=== PATIENT | male | born 1935 | race Caucasian/White ===

== ENCOUNTER 2018-08-28 08:00 | Day surgery (SDC) | payer MEDICARE ==
[2018-08-28] VITALS (7 sets, daily range): BP systolic 108–138; BP diastolic 56–104
[~2018-08-28] VITALS: Ht 182.9 cm; Wt 94.6 kg
[2018-08-28] MEDS ORDERED: SPIR25TA5 PO (08:36)
[2018-08-28] MEDS ORDERED: COU5T PO (08:37)
[2018-08-28] MEDS ORDERED: CARV-50 PO (08:37)
[2018-08-28] MEDS ORDERED: SIMV20TA5 PO (08:39)
[2018-08-28] MEDS ORDERED: LEVO25TA2 PO (08:42)
[2018-08-28] MEDS ORDERED: FINA5TAB11 PO (08:43)
[2018-08-28] MEDS ORDERED: FLO0.4C PO (08:44)
[2018-08-28] MEDS ORDERED: LOSA25TA96 PO (08:44)
[2018-08-28] MEDS ORDERED: COLC0.6T69 PO (08:47)
[2018-08-28] MEDS ORDERED: sod bicarbonate 150mEq in D5W 1,150 ML IV ONE (08:55)
[2018-08-28] MEDS ORDERED: diphenhydrAMINE 25mg capsule PO PRN (08:55)
[2018-08-28 09:03] LABS: BASOPHILS # (AUTO) 0.1 X10'3 (0-0.2); BASOPHILS % (AUTO) 0.9 % (0-1); EOSINOPHILS # (AUTO) 0.3 X10'3 (0-0.9); EOSINOPHILS % (AUTO) 4.3 % (0-6); LYMPHOCYTES # (AUTO) 1.1 X10'3 (1.1-4.8); LYMPHOCYTES % (AUTO) 15.5 % (21-51); MEAN CORPUSCULAR HEMOGLOBIN 32.6 PG (27.0-31.0); MEAN CORPUSCULAR HGB CONC 33.1 % (33.0-36.5); MEAN CORPUSCULAR VOLUME 98.5 FL (78-98); MEAN PLATELET VOLUME 8.2 FL (7.4-10.4); MONOCYTES # (AUTO) 0.6 X10'3 (0-0.9); NEUTROPHILS # (AUTO) 5.2 X10'3 (1.8-7.7); NEUTROPHILS % (AUTO) 71.3 % (42-75); PRE OP HEMATOCRIT 46.4 % (42.0-52.0); PRE OP HEMOGLOBIN 15.4 g/dL (14.0-17.9); PRE OP PLATELET COUNT 145 X10'3 (140-440); RED BLOOD COUNT 4.71 X10'6 (4.70-6.10); RED CELL DISTRIBUTION WIDTH 15.1 % (11.5-14.5)
[2018-08-28] MEDS ORDERED: fentaNYL/PF 50MCG/1 ML 2ML syringe ONE ×3 (09:07→10:54)
[2018-08-28] MEDS ORDERED: midazolam 2 mg/2 ml injection ONE ×3 (09:07→10:26)
[2018-08-28] MEDS ORDERED: vancomycin 1,000mg inj ONE (09:08)
[2018-08-28] MEDS ORDERED: iohexol 350 MG/ML 50ML vial IV ONE ×2 (09:08→10:26)
[2018-08-28] MEDS ORDERED: cefazolin/dext.iso 2gm/50ml 50 ML IV ONE (09:08)
[2018-08-28] MEDS ORDERED: LIDOcaine 1.5% w/epinephrine 1:200,000 5ml ampul ONE (09:08)
[2018-08-28 09:12] LABS: ALBUMIN 3.7 G/DL (3.4-5.0); ANION GAP 10 (8-16); BLOOD UREA NITROGEN 27 MG/DL (7-18); BUN/CREATININE RATIO 18.4 (5.4-32.0); CALCIUM 8.5 MG/DL (8.5-10.1); CHLORIDE 107 MMOL/L (99-107); CREATININE 1.47 MG/DL (0.60-1.10); GLUCOSE 106 MG/DL (70-104); MAGNESIUM 1.8 MG/DL (1.5-2.4); POTASSIUM 4.3 MMOL/L (3.5-5.1); SODIUM 140 MMOL/L (135-145); eGFR 46 ML/MIN
[2018-08-28 09:21] LABS: INR 1.2 INR; PROTHROMBIN TIME 12.3 SECONDS (9.0-12.0)
[2018-08-28] MEDS ORDERED: proCHLORperazine 10 MG/2 ml inj ONE (10:22)
== END 2018-08-28 13:50 | disposition home or self-care (01) ==
LOC: SSTAY O 08:00
PROVIDERS: ATTEND Internal Medicine Cardiovascular Disease
DX: Z45.02 Encounter for adjustment and management of automatic implantable cardiac defibrillator (principal); I44.7 Left bundle-branch block, unspecified; I42.0 Dilated cardiomyopathy; I12.9 Hypertensive chronic kidney disease with stage 1 through stage 4 chronic kidney disease, or unspecified chronic kidney disease; N18.9 Chronic kidney disease, unspecified; M19.90 Unspecified osteoarthritis, unspecified site; Z86.74 Personal history of sudden cardiac arrest; Z95.5 Presence of coronary angioplasty implant and graft; Z95.1 Presence of aortocoronary bypass graft; Z87.891 Personal history of nicotine dependence; Z90.5 Acquired absence of kidney; Z72.89 Other problems related to lifestyle; Z85.528 Personal history of other malignant neoplasm of kidney; Z79.01 Long term (current) use of anticoagulants; Z79.899 Other long term (current) drug therapy; Z88.8 Allergy status to other drugs, medicaments and biological substances; Z98.890 Other specified postprocedural states
CPT/HCPCS: 33225; 33264; 36415; 71046; 80048; 83735; 85025; 85610; 93005; 99152; 99153; C1882; C1887; C1900; J0690; J0780; J2250; J3010; J3370; Q9967; 33216; 33231; A4565; A4620; C1769; C1894; J3490

== ENCOUNTER 2022-05-28 07:54 | Day surgery (SDC) | payer MEDICARE ==
[2022-05-28] VITALS (10 sets, daily range): BP systolic 117–137; BP diastolic 60–81
[~2022-05-28] VITALS: Ht 180.3 cm; Wt 87.9 kg
[~2022-05-28 07:54] MED LIST: CARV-50 PO; COLC0.6T72 PO; FINA5TAB11 PO; FLO0.4C PO; LEVO25TA2 PO; LOSA25TA96 PO; SIMV-42 PO; SPIR25TA5 PO; WARF-113 PO
[2022-05-28] MEDS ORDERED: normal saline 1,000 ML IV SCH (08:15)
[2022-05-28] MEDS ORDERED: diphenhydrAMINE 25mg capsule PO PRN (08:15)
[2022-05-28] MEDS ORDERED: NITR0.4T51 SL (08:24)
[2022-05-28] MEDS ORDERED: ASPI81TA52 PO (08:24)
[2022-05-28] MEDS ORDERED: TRAM50TA2 PO (08:38)
[2022-05-28] MEDS ORDERED: FLUT1BLS16 (08:38)
[2022-05-28] MEDS ORDERED: AMIO200T61 PO (08:38)
[2022-05-28] MEDS ORDERED: TYLENOL PO (08:38)
[2022-05-28] MEDS ORDERED: ISOS30TA84 PO (08:38)
[2022-05-28 09:10] LABS: BASOPHILS # (AUTO) 0.1 X10'3 (0-0.2); BASOPHILS % (AUTO) 1.2 % (0-1); EOSINOPHILS # (AUTO) 0.1 X10'3 (0-0.9); EOSINOPHILS % (AUTO) 2.5 % (0-6); HEMATOCRIT 39.7 % (42.0-52.0); HEMOGLOBIN 12.7 g/dl (14.0-17.9); LYMPHOCYTES # (AUTO) 0.7 X10'3 (1.1-4.8); LYMPHOCYTES % (AUTO) 12.4 % (21-51); MEAN CORPUSCULAR HEMOGLOBIN 26.7 PG (27.0-31.0); MEAN CORPUSCULAR VOLUME 83.4 FL (78-98); MEAN PLATELET VOLUME 8.1 FL (7.4-10.4); MONOCYTES # (AUTO) 0.5 X10'3 (0-0.9); MONOCYTES % (AUTO) 8.5 % (2-12); NEUTROPHILS # (AUTO) 4.5 X10'3 (1.8-7.7); NEUTROPHILS % (AUTO) 75.4 % (42-75); PLATELET COUNT 151 X10'3 (140-440); RED BLOOD COUNT 4.75 X10'6 (4.70-6.10); RED CELL DISTRIBUTION WIDTH 18.9 % (11.5-14.5); WHITE BLOOD COUNT 5.9 X10'3 (4.5-11.0)
[2022-05-28 09:26] LABS: ALBUMIN 3.9 G/DL (3.4-5.0); ANION GAP 12 (8-16); BLOOD UREA NITROGEN 33 MG/DL (7-18); BUN/CREATININE RATIO 16.6 (5.4-32.0); CALCIUM 8.6 MG/DL (8.5-10.1); CHLORIDE 108 MMOL/L (99-107); CREATININE 1.99 MG/DL (0.60-1.10); GLUCOSE 93 MG/DL (70-104); MAGNESIUM 1.8 MG/DL (1.5-2.4); POTASSIUM 4.4 MMOL/L (3.5-5.1); SODIUM 141 MMOL/L (135-145); TOTAL CARBON DIOXIDE 21.1 MMOL/L (24-32); eGFR 32 ML/MIN
[2022-05-28 09:41] LABS: LARGE PLATELETS FEW; PLATELET ESTIMATE NORMAL
[2022-05-28 09:42] LABS: ELLIPTOCYTES FEW; POIKILOCYTOSIS FEW; POLYCHROMASIA FEW
[2022-05-28] MEDS ORDERED: midazolam 1 mg/ML 2ml injection ONE ×2 (11:09→12:14)
[2022-05-28] MEDS ORDERED: LIDOcaine 1% 30ml preserv. free vial ONE (11:09)
[2022-05-28] MEDS ORDERED: fentaNYL/PF 50MCG/1 ML 2ML syringe ONE ×2 (11:09→12:14)
[2022-05-28] MEDS ORDERED: heparin 1,000unit/ml 10ml vial 10 ML ONE (11:09)
[2022-05-28] MEDS ORDERED: iohexol 350MG/ML 100ml bottle IV ONE (11:09)
[2022-05-28] MEDS ORDERED: proCHLORperazine 10 MG/2 ml inj ONE (11:09)
[2022-05-28] MEDS ORDERED: verapamil 2.5 mg/ml inj IV ONE (11:51)
[2022-05-28] MEDS ORDERED: nitroGLYCERIN-Tridil 50MG/D5W 250 ML IV ONE (11:51)
[2022-05-28] MEDS ORDERED: heparin 1,000 UNITS/NS 500ml 500 ML ONE (12:07)
[2022-05-28] MEDS ORDERED: ondansetron/PF 4mg/2ml inj IV PRN (15:35)
[2022-05-28] MEDS ORDERED: acetaminophen 325mg tablet PO PRN (15:35)
[2022-05-28] MEDS ORDERED: HYDROcodone/acetaminophen 5mg/325mg tablet PO PRN (15:35)
[2022-05-28] MEDS ORDERED: normal saline 1000ml 1,000 ML IV SCH (15:35)
[2022-05-28] MEDS ORDERED: proCHLORperazine 10 MG/2 ml inj IV PRN (15:35)
[2022-05-28] MEDS ORDERED: HYDROcodone/acetaminophen 10/325mg tab PO PRN (15:35)
== END 2022-05-28 17:10 | disposition home or self-care (01) ==
LOC: SSTAY O 07:54
PROVIDERS: ATTEND Internal Medicine Cardiovascular Disease
DX: R07.9 Chest pain, unspecified (principal); I25.10 Atherosclerotic heart disease of native coronary artery without angina pectoris; I42.9 Cardiomyopathy, unspecified; I25.2 Old myocardial infarction; I10 Essential (primary) hypertension; E78.5 Hyperlipidemia, unspecified; E11.9 Type 2 diabetes mellitus without complications; Z87.891 Personal history of nicotine dependence; Z79.899 Other long term (current) drug therapy; Z98.890 Other specified postprocedural states
CPT/HCPCS: 36415; 80048; 83735; 85025; 85610; 93005; 93454; 99152; 99153; C1760; C1769; C1894; J0780; J1644; J2250; J3010; J3490; J7030; Q0163; Q9967; 85008; A4620; A5120; A6258; A6402